=== PATIENT | female | born 1975 | race Two or more races ===

== ENCOUNTER 2018-02-12 13:23 | Emergency (ER) | payer SELFPAY ==
--- NOTE | 2018-02-12 13:37 | EDPHY ---
H & P Stated Complaint: headache, blurred vission, nausea x 4 days Time Seen by Provider: 02/12/18 13:36 HPI/ROS: HPI: This is a 42-year-old female who presents with Chief Complaint: headache, blurred vision, nausea x 4 days Location: Left flank Quality: Pain Duration: 4 days Signs and Symptoms: no fever, + nausea, no vomiting, no hematemesis, no blood in stool, no abdominal bloating, no diarrhea, + back pain, no urinary symptoms, no vaginal bleeding/discharge, no indigestion, no chest pain, no shortness of breath Timing: Daily Severity: Moderate Context: Patient presents with left flank pain, nonradiating in nature, moderate in intensity x 4 days accompanied by nausea, frontal headache, and blurred vision x 3 hours. She was seen at the [facility] in [place] on Tuesday and told she had high blood pressure. She takes blood pressure medication but unsure of name and dosage. She took the blood pressure medication today. Headache started while in [place]. Not worst headache of life. She reports that she has had chronic low back pain for the last 2 years. 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 Denies urinary symptoms/incontinence. Eating and drinking normally. LMP 2-3 weeks ago. Denies any radiation/weakness /decreased range of motion. Had bowel movement this morning. Denies food intolerances/early satiety/belching. Modifying Factors: [id number] pain medications no relief Comment: ROS: see HPI Constitutional: No fever, no chills, no weight loss Eyes: No blurred vision Respiratory: No shortness of breath, no cough Cardiovascular: No chest pain, no palpitations Gastrointestinal: No nausea,+ vomiting, no diarrhea, no hematemesis, no blood in stool Genitourinary: No dysuria, no blood in urine Extremities: No myalgias, no edema Neurologic: No weakness, no numbness Skin: No rashes, no petechiae Hematologic: No bruising, no bleeding MEDICAL/SURGICAL/SOCIAL HISTORY: Medical history: Hypertension, depression, GERD Surgical history: Denies Social history: Family history noncontributory. CONSTITUTIONAL: Extremely well-appearing anxious middle-aged female, awake and alert, no obvious distress HEENT: Atraumatic and normocephalic, PERRL, EOMI. Nares patent; no rhinorrhea; no nasal mucosal edema. Tympanic membranes clear. Oropharynx clear, no exudate and moist pink mucosa. Airway patent. No lymphadenopathy. No meningismus. Cardiovascular: Normal S1/S2, tachycardia, regular rhythm, without murmur rub or gallop. PULMONARY/CHEST: Symmetrical and nontender. Clear to auscultation bilaterally. Good air movement. No accessory muscle usage. ABDOMEN: Soft, nondistended, nontender, no rebound, no guarding, no peritoneal signs, no masses or organomegaly. No CVAT. PELVIC: no pain with rocking; bilateral hips flexion 125 degrees, extension 30 degrees, with no pain internal rotation and no pain external rotation. BACK: No midline tenderness, no paraspinous spasm, deep tendon reflexes 2/2, no pain with straight leg raise, No foot drop. Achilles reflexes are equal bilaterally. Able to walk on heels and toes without difficulty. EXTREMITIES: 2/2 pulses, strength 5/5, no deformities, no clubbing, no cyanosis or edema. NEUROLOGICAL: no focal neuro deficits. GCS 15. SKIN: Warm and dry, no erythema. no rash. Good capillary refill. Source: Patient Exam Limitations: No limitations - Personal History LMP (Females 10-55): 22-28 Days Ago Current Tetanus Diphtheria and Acellular Pertussis (TDAP): Yes Tetanus Vaccine Date: WITHIN 10 YRS - Medical/Surgical History Hx Asthma: No Hx Chronic Respiratory Disease: No Hx Diabetes: No Hx Cardiac Disease: No Hx Renal Disease: No Hx Cirrhosis: No Hx Alcoholism: No Hx HIV/AIDS: No Hx Splenectomy or Spleen Trauma: No Other PMH: depression. Gerd. htn - Social History Smoking Status: Never smoked Constitutional: Initial Vital Signs Temperature (C) 36.9 C 02/12/18 13:27 Heart Rate 108 H 02/12/18 13:27 Respiratory Rate 16 02/12/18 13:27 Blood Pressure 181/91 H 02/12/18 13:27 O2 Sat (%) 97 02/12/18 13:27 O2 Delivery Mode Room Air Allergies/Adverse Reactions: No Known Allergies Allergy (Unverified 02/11/15 10:00) Home Medications: Medication Instructions Recorded Pantoprazole Sodium [Protonix] 40 mg PO DAILY #30 tab 01/21/15 Paroxetine HCl 01/21/15 Nitrofurantoin Monohyd/M-Cryst 100 mg PO BID 5 Days cap 02/11/15 [Macrobid] Hydrocodone/Acetaminophen [[place] 1 - 2 tab PO Q4H PRN #15 tab 02/13/15 5/325 (*)] Hydrocodone/Acetaminophen [[place] 1 - 2 tab PO Q4H PRN #15 tab 02/13/15 5/325 (*)] Medical Decision Making - Diagnostics EKG Interpretation: 12 lead EKG: Indication: Hypertension Rhythm: Sinus tachycardia, rate 124 beats per minute [place]: Normal Intervals: Normal QRS: Normal ST segments: Normal INTERPRETATION: Normal EKG The 12 lead EKG was interpreted by myself and with attending. Imaging Results: Imaging Impressions Abdomen/Pelvis CT 02/12/18 13:50 Impression: 1. Negative for nephrolithiasis or obstructive uropathy. 2. Malposition of the left fallopian tube Essure closure device as detailed above. The left fallopian tube is not definitely obstructed which might lead to an unplanned . 3. See above report for additional findings. Results called and discussed with Tatum Ohara PAC on 02/12/2018 at 14:50 ED Course/Re-evaluation: Urinalysis, labs, IV fluids, IV medications, CT abdomen and pelvis scan ordered Given IV morphine and IV Zofran with complete relief of pain Urinalysis shows no signs of infection/hematuria Reviewed labs. No signs of leukocytosis/anemia/CHANTELLE/elevated LFTs/electrolyte imbalance. 1448: Called by radiologist who advised that CT abdomen and pelvis scan shows no signs of stone, obstruction, appendicitis. Essure device on the left fallopian perforated that is incidental finding; may make her fertile; eat OBGYN follow-up Serum negative for Given lisinopril 40 mg for hypertension. Repeat blood pressure improved at discharge. Passed p. O. Trial prior to discharge. No signs of CVA/neurological deficits to warrant head CT imaging or MRI imaging. This patient was seen under the supervision of my secondary supervising physician. I evaluated care for this patient independently. Discussed this patient with Dr. Cho who did not see the patient. Differential Diagnosis: Flank pain including but not limited to musculoskeletal causes, kidney stone, pyelonephritis, shingles, and intra-abdominal causes such as diverticulitis and appendicitis. - Data Points Laboratory Results: Laboratory Results 02/12/18 13:50 02/12/18 13:50 02/12/18 02/12/18 02/12/18 13:50 13:50 13:50 WBC RBC Hgb Hct MCV MCH MCHC RDW Plt Count MPV Neut % (Auto) Lymph % (Auto) [place] % (Auto) Eos % (Auto) Baso % (Auto) Nucleat RBC Rel Count Absolute Neuts (auto) Absolute Lymphs (auto) Absolute Monos (auto) Absolute Eos (auto) Absolute Basos (auto) Absolute Nucleated RBC Immature Gran % Immature Gran # Sodium 144 mEq/L mEq/L (135-145) Potassium 3.9 mEq/L mEq/L (3.5-5.2) Chloride 102 mEq/L mEq/L (97-110) Carbon Dioxide 26 mEq/l mEq/l (22-31) Anion Gap 16 mEq/L mEq/L (8-16) BUN 11 mg/dL mg/dL (7-23) Creatinine 0.7 mg/dL mg/dL (0.6-1.0) Estimated GFR > 60 Glucose 90 mg/dL mg/dL (70-100) Calcium 9.5 mg/dL mg/dL (8.5-10.4) Total Bilirubin 0.8 mg/dL mg/dL (0.1-1.4) Conjugated Bilirubin 0.4 mg/dL mg/dL (0.0-0.5) Unconjugated Bilirubin 0.4 mg/dL mg/dL (0.0-1.1) AST 37 IU/L IU/L (14-46) ALT 54 IU/L H IU/L (9-52) Alkaline Phosphatase 126 IU/L IU/L (38-126) Total Protein 8.4 g/dL H g/dL (6.3-8.2) Albumin 4.9 g/dL g/dL (3.5-5.0) Lipase 93 IU/L IU/L (23-300) Beta HCG, Qual NEGATIVE Urine Color YELLOW Urine Appearance MODERATELY TURBID Urine pH 7.0 (5.0-7.5) Ur Specific [place] 1.012 (1.002-1.030) Urine Protein NEGATIVE (NEGATIVE) Urine Ketones NEGATIVE (NEGATIVE) Urine Blood NEGATIVE (NEGATIVE) Urine Nitrate NEGATIVE (NEGATIVE) Urine Bilirubin NEGATIVE (NEGATIVE) Urine Urobilinogen NEGATIVE EU EU (0.2-1.0) Ur Leukocyte Esterase NEGATIVE (NEGATIVE) Urine Glucose NEGATIVE (NEGATIVE) 02/12/18 13:50 WBC 8.87 10^3/uL 10^3/uL (3.80-9.50) RBC 4.95 10^6/uL 10^6/uL (4.18-5.33) Hgb 15.1 g/dL g/dL (12.6-16.3) Hct 45.0 % % (38.0-47.0) MCV 90.9 fL fL (81.5-99.8) MCH 30.5 pg pg (27.9-34.1) MCHC 33.6 g/dL g/dL (32.4-36.7) RDW 12.8 % % (11.5-15.2) Plt Count 250 10^3/uL 10^3/uL (150-400) MPV 9.6 fL fL (8.7-11.7) Neut % (Auto) 68.3 % % (39.3-74.2) Lymph % (Auto) 23.1 % % (15.0-45.0) [place] % (Auto) 7.6 % % (4.5-13.0) Eos % (Auto) 0.3 % L % (0.6-7.6) Baso % (Auto) 0.5 % % (0.3-1.7) Nucleat RBC Rel Count 0.0 % % (0.0-0.2) Absolute Neuts (auto) 6.06 10^3/uL 10^3/uL (1.70-6.50) Absolute Lymphs (auto) 2.05 10^3/uL 10^3/uL (1.00-3.00) Absolute Monos (auto) 0.67 10^3/uL 10^3/uL (0.30-0.80) Absolute Eos (auto) 0.03 10^3/uL 10^3/uL (0.03-0.40) Absolute Basos (auto) 0.04 10^3/uL 10^3/uL (0.02-0.10) Absolute Nucleated RBC 0.00 10^3/uL 10^3/uL (0-0.01) Immature Gran % 0.2 % % (0.0-1.1) Immature Gran # 0.02 10^3/uL 10^3/uL (0.00-0.10) Sodium Potassium Chloride Carbon Dioxide Anion Gap BUN Creatinine Estimated GFR Glucose Calcium Total Bilirubin Conjugated Bilirubin Unconjugated Bilirubin AST ALT Alkaline Phosphatase Total Protein Albumin Lipase Beta HCG, Qual Urine Color Urine Appearance Urine pH Ur Specific [place] Urine Protein Urine Ketones Urine Blood Urine Nitrate Urine Bilirubin Urine Urobilinogen Ur Leukocyte Esterase Urine Glucose Medications Given: Discontinued Medications Hydromorphone HCl (Dilaudid) 0.5 mg IVP EDNOW ONE Stop: 02/12/18 13:50 Last Admin: 02/12/18 13:56 Dose: 0.5 mg Lisinopril (Zestril) 40 mg PO EDNOW ONE Stop: 02/12/18 14:24 Last Admin: 02/12/18 14:39 Dose: 40 mg Ondansetron HCl (Zofran Odt) 4 mg PO EDNOW ONE Stop: 02/12/18 13:50 Last Admin: 02/12/18 13:56 Dose: 4 mg Departure - Departure Disposition: Home, Routine, Self-Care Clinical Impression: Encounter for post Essure sterilization check Condition: Good Instructions: Constipation (ED), Low Back Strain (ED), Hypertension (ED), Lower Back Exercises (ED) Additional Instructions: Please call the [facility] tomorrow regarding your elevated blood pressure. You need to know the name of the blood pressure medication you are on and to discuss whether another blood pressure needs to be added or your blood pressure medication needs to be increased. Follow up with OBGYN regarding your Essure device that has perforated your left fallopian tube. There is a chance that you could get at this time. Please abstain from intercourse or observe control methods to prevent . Consume a minimum of 8-10 glasses of water or electrolyte fluid replacement drinks that include Gatorade, Powerade, Pedialyte. Eat a bland diet for the next 48 hours and then slowly advance as tolerated. Take MiraLax daily x 7 days and then daily as needed for constipation. Return to the ER immediately if you experience new, continued or worsening abdominal pain, fevers/chills, inability to tolerate oral intake, new pain, or any other symptoms that concern you. Por favor llame a la Clin[facility] manana con respecto a la presion sanguinea elevada. Usted necesita saber el nombre el medicamento para la presion sanguinea que esta tomando, tambien para discutir la posibilidad de anadir otro medicamento para la presion o aumentar el mismo. Manjit seguimiento con la [employer] con respecto al dispositivo Essure que gottlieb sido perforado en la trompa de falopio izquieda. Existe la posibilidad de que usted se pudiera embarazar en jeremy momento. Por favor abstenga el coito ( relaciones sexuales) o utilice metodos anticonceptivos para prevenir el embarazo. Consuma un minimo de 8-10 vasos con agua o bebidas con electrolitos thi Gatorade, Powerdade, Pedialyte. Consuma maxime dieta blanda por las siguientes 48 horas y avance tentalemte thi sea tolerado. [place] MiraLax diario por 7 harden y despues diariamente thi sea necesario para el estrenimiento. Regrese al cuarto de emergencias inmediatamente si experimenta nuevo, dolor abdominal continuo o empeoramiento del mismo, fiebre/escalofrios, inabilidad para tolerar el consumo oral, dolor nuevo, o cualquier otro sintoma que le preocupe. Referrals: [facility] [Clinic] - As per Instructions Georgina Crocker MD [Medical Doctor] - As per Instructions Print Language: Sinhala
[2018-02-12] MEDS ORDERED: HYDROmorphONE/DILAUDID 2 MG/ML INJ IVP ONE (13:49)
[2018-02-12] MEDS ORDERED: ONDANSETRON DISINTEGRATING 4 MG TAB PO ONE (13:49)
[2018-02-12 13:59] LABS: PLATELET COUNT 250 10^3/uL (150-400)
[2018-02-12] MEDS ORDERED: LISINOPRIL 20 MG TAB PO ONE (14:23)
[2018-02-12 15:39] VITALS: BP 108/65
--- NOTE | 2018-02-14 07:39 | CPEKG ---
Heart Rate: 124 RR Interval: 484 P-R Interval: 144 QRSD Interval: 74 QT Interval: 324 QTC Interval: 466 P [place]: 56 QRS [place]: 32 T Wave [place]: 6 EKG Severity - BORDERLINE ECG - EKG Impression: SINUS TACHYCARDIA EKG Impression: PROBABLE LEFT ATRIAL ABNORMALITY Electronically Signed By: Steve López 14-Feb-2018 12:25:44
== END 2018-02-12 15:35 | disposition home or self-care (01) ==
DX: Z30.2 Encounter for sterilization (principal); I10 Essential (primary) hypertension
CPT/HCPCS: 96374; J1170